=== PATIENT | female | born 1990 | race Caucasian/White ===

== ENCOUNTER 2017-12-25 11:28 | Emergency (ER) | payer OTHER ==
[~2017-12-25] VITALS: Ht 157.5 cm; Wt 95.6 kg
[2017-12-25] MEDS ORDERED: CELEXA40 MG PO (13:50)
[2017-12-25 14:04] VITALS: BP 136/83
== END 2017-12-25 14:09 | disposition home or self-care (01) ==
LOC: EME 11:28
DX: J06.9 Acute upper respiratory infection, unspecified (principal); M79.89 Other specified soft tissue disorders; M25.572 Pain in left ankle and joints of left foot; Z76.0 Encounter for issue of repeat prescription; F17.200 Nicotine dependence, unspecified, uncomplicated
CPT/HCPCS: 73610; 99281; 99284